=== PATIENT | female | born 1980 | race Caucasian/White ===

== ENCOUNTER 2017-10-01 19:09 | Emergency (ER) | payer SELFPAY ==
[2017-10-01 19:19] VITALS: BP 121/80; PULSE 75; RESP 16; TEMP 98; O2SAT 100
[2017-10-01] MEDS ORDERED: Sodium Chloride 0.9% 1,000 ML IV STA (19:30)
--- NOTE | 2017-10-01 19:32 | ED PDOC ---
HPI: Abdomen Time Seen by Provider: 10/01/17 19:19 Chief Complaint (Nursing): Abdominal Pain History Per: Patient Onset/Duration Of Symptoms: Days (8) Current Symptoms Are (Timing): Still Present Severity: Mild Pain Scale Rating Of: 3 Location Of Pain/Discomfort: Epigastric Quality Of Discomfort: Unable To Describe Associated Symptoms: Nausea, Vomiting. denies: Fever, Diarrhea, Urinary Symptoms Additional Complaint(s): Epigastric pain assoc with nausea and vomiting x 8 days. No fever or diarrhea. Past Medical History Vital Signs: Last Vital Signs Temp 98 F 10/01/17 19:17 Pulse 75 10/01/17 19:17 Resp 16 10/01/17 19:17 BP 121/80 10/01/17 19:17 Pulse Ox 100 10/01/17 19:31 - Medical History PMH: No Chronic Diseases - Surgical History Surgical History: Cholecystectomy - Family History Family History: States: Unknown Family Hx - Home Medications Home Medications: Ambulatory Orders Medication Instructions Recorded Vit No.130/Iron/Folic 1 tab DAILY 07/31/15 [ Tablet] Ibuprofen [Motrin Tab] 600 mg PO Q6 PRN #0 tab 08/01/15 Sennosides A and B [Senokot Tab] 17.2 mg PO HS #0 tab 08/01/15 Famotidine [Pepcid] 20 mg PO Q12 #20 tab 10/01/17 Ondansetron [Zofran] 4 mg PO Q8H #10 tab 10/01/17 - Allergies Allergies/Adverse Reactions: Allergies Allergy/AdvReac Type Severity Reaction Status Date / Time No Known Allergies Allergy Verified 10/01/17 19:17 Review of Systems ROS Statement: Except As Marked, All Systems Reviewed And Found Negative Constitutional: Negative for: Fever Gastrointestinal: Positive for: Nausea, Vomiting, Abdominal Pain. Negative for : Diarrhea Physical Exam - Reviewed Nursing Documentation Reviewed: Yes Vital Signs Reviewed: Yes - Physical Exam Appears: Positive for: Non-toxic, No Acute Distress Head Exam: Positive for: ATRAUMATIC, NORMAL INSPECTION, NORMOCEPHALIC Skin: Positive for: Normal Color, Warm, DRY Eye Exam: Positive for: EOMI, Normal appearance, PERRL ENT: Positive for: Normal ENT Inspection Neck: Positive for: Normal, Painless ROM Cardiovascular/Chest: Positive for: Regular Rate, Rhythm Respiratory: Positive for: CNT, Normal Breath Sounds Gastrointestinal/Abdominal: Positive for: Bowel Sounds, Soft, Tenderness ( Epigastric) Back: Positive for: Normal Inspection Extremity: Positive for: Normal ROM Neurologic/Psych: Positive for: Alert, Oriented - Laboratory Results Result Diagrams: 10/01/17 19:56 10/01/17 19:56 - ECG O2 Sat by Pulse Oximetry: 100 - Progress Re-evaluation Time: 20:32 Condition: Improved Disposition - Clinical Impression Clinical Impression: Gastritis - Patient ED Disposition Is Patient to be Admitted: No Counseled Patient/Family Regarding: Studies Performed, Diagnosis, Need For Followup, Rx Given - Disposition [facility]errals: [facility] [Outside] Disposition: Routine/Home Disposition Time: 20:33 Condition: FAIR Prescriptions: Famotidine [Pepcid] 20 mg PO Q12 #20 tab Ondansetron [Zofran] 4 mg PO Q8H #10 tab Instructions: Gastritis Forms: [facility] (Tajik) Print Language: SAMI
[2017-10-01 20:00] LABS: BASO % 0.7 % (0.0-2.0); EOS # 0.6 K/uL (0.0-0.7); EOS % 12.2 % (0.0-4.0); HEMOGLOBIN 12.2 g/dL (12.0-16.0); LYMPH # 1.6 K/uL (1.0-4.3); LYMPH % 33.3 % (20.0-40.0); MEAN CELL VOLUME 88.9 fl (81.0-99.0); MEAN CORPUSCULAR HEMOGLOBIN 29.3 pg (27.0-31.0); MEAN PLATELET VOLUME 8.5 fl (7.2-11.7); MONO # 0.4 K/uL (0.0-0.8); MONO % 8.2 % (0.0-10.0); NEUT # 2.1 K/uL (1.8-7.0); NEUT % 45.6 % (50.0-75.0); RBC 4.17 Mil/uL (3.80-5.20); WHITE BLOOD COUNT 4.7 K/uL (4.8-10.8)
[2017-10-01 20:09] LABS: ALB/GLOB RATIO 1.2 (1.0-2.1); ALBUMIN 4.1 g/dL (3.5-5.0); ALT/SGPT 31 U/L (9-52); AST/SGOT 34 U/L (14-36); BLOOD UREA NITROGEN 8 mg/dl (7-17); CALCIUM 8.9 mg/dL (8.4-10.2); GFR AFRICAN-AMERICAN > 60; GFR NON-AFRICAN AMERICAN > 60; LIPASE 183 U/L (23-300)
== END 2017-10-01 20:52 | disposition home or self-care (01) ==
LOC: H.ER 19:09
DX: K29.70 Gastritis, unspecified, without bleeding (principal)
CPT/HCPCS: 80053; 81025; 83690; 85025; 96374; 96375; 99284; J2405; J7030

== ENCOUNTER 2018-05-02 14:32 | Emergency (ER) | payer SELFPAY ==
[2018-05-02 14:37] VITALS: RESP 16
[2018-05-02] MEDS ORDERED: Sodium Chloride 0.9% 1,000 ML IV STA (15:12)
--- NOTE | 2018-05-02 16:15 | ED PDOC ---
HPI: Abdomen Time Seen by Provider: 05/02/18 15:02 Chief Complaint (Nursing): Abdominal Pain Chief Complaint (Provider): Abdominal Pain History Per: Patient History/Exam Limitations: no limitations Onset/Duration Of Symptoms: Sudden Onset, Worse Since Current Symptoms Are (Timing): Still Present Location Of Pain/Discomfort: LLQ Quality Of Discomfort: Other (fullness) Associated Symptoms: Chills, Nausea, Diarrhea. denies: Fever, Vomiting Additional Complaint(s): 38 year old female presents to the ED for an evaluation of sudden abdominal pain onset Tuesday while having bowel movement. Patient reports of diarrhea onset for the last 2 days and constipation which resolved. Currently, patient has worsening LLQ pain that is radiating to the rest of the abdomen and a feeling of fullness with associated symptoms of nausea, poor appetite and chills. She was seen at the clinic today and advised to come to the ER for further evaluation. The pelvic exam at the clinic demonstrates CMT. Otherwise, she denies vomiting, fever, vaginal discharge or any urinary symptoms. PMD: Chalino Sanchez Abnormal Vaginal Bleeding: No Past Medical History Reviewed: Historical Data, Nursing Documentation, Vital Signs Vital Signs: Last Vital Signs Temp 97.6 F 05/02/18 14:34 Pulse 71 05/02/18 14:34 Resp 16 05/02/18 14:34 BP 120/72 05/02/18 14:34 Pulse Ox 100 05/02/18 14:34 - Medical History PMH: No Chronic Diseases - Surgical History Surgical History: Cholecystectomy - Family History Family History: States: Unknown Family Hx - Social History Current smoker - smoking cessation education provided: No Alcohol: None Drugs: Denies - Home Medications Home Medications: Ambulatory Orders Medication Instructions Recorded Vit No.130/Iron/Folic 1 tab DAILY 07/31/15 [ Tablet] Ibuprofen [Motrin Tab] 600 mg PO Q6 PRN #0 tab 08/01/15 Sennosides A and B [Senokot Tab] 17.2 mg PO HS #0 tab 08/01/15 Famotidine [Pepcid] 20 mg PO Q12 #20 tab 10/01/17 Ondansetron [Zofran] 4 mg PO Q8H #10 tab 10/01/17 Doxycycline Monohydrate 100 mg PO BID #28 tablet 05/02/18 Ibuprofen [Motrin Tab] 600 mg PO Q8 PRN #60 tab 05/02/18 - Allergies Allergies/Adverse Reactions: Allergies Allergy/AdvReac Type Severity Reaction Status Date / Time No Known Allergies Allergy Verified 10/01/17 19:17 Review of Systems ROS Statement: Except As Marked, All Systems Reviewed And Found Negative (As per HPI, otherwise negative) Constitutional: Positive for: Chills. Negative for: Fever Gastrointestinal: Positive for: Nausea, Abdominal Pain, Diarrhea. Negative for: Vomiting, Constipation Genitourinary Female: Negative for: Dysuria, Frequency, Incontinence, Hematuria, Vaginal Discharge Physical Exam - Reviewed Nursing Documentation Reviewed: Yes Vital Signs Reviewed: Yes - Physical Exam Appears: Positive for: In Acute Distress (mild painful) Head Exam: Positive for: ATRAUMATIC, NORMOCEPHALIC Skin: Positive for: Warm, Dry Eye Exam: Positive for: EOMI, PERRL ENT: Negative for: Pharyngeal Erythema, Tonsillar Exudate Neck: Positive for: Painless ROM, Supple Cardiovascular/Chest: Positive for: Regular Rate, Rhythm. Negative for: Murmur Respiratory: Positive for: Normal Breath Sounds. Negative for: Respiratory Distress Gastrointestinal/Abdominal: Positive for: Soft, Tenderness (suprapubic radiating to LLQ with mild palpation ), Distended (mild ). Negative for: Mass, Guarding, Rebound (negtive for nayak's sign and mcburney's point tenderness ), Other Back: Positive for: Normal Inspection. Negative for: L CVA Tenderness, R CVA Tenderness Extremity: Positive for: Normal ROM. Negative for: Deformity Lymphatic: Negative for: Adenopathy Neurological/Psych: Positive for: Awake, Alert. Negative for: Motor/Sensory Deficits - Laboratory Results Result Diagrams: 05/02/18 15:28 05/02/18 15:28 - ECG O2 Sat by Pulse Oximetry: 100 (RA) Pulse Ox Interpretation: Normal Medical Decision Making Medical Decision Making: Time: 151 Impression: pelvic pain Differential Diagnosis: ovarian cyst, TOA, TID, UTI with cystitis, diverticulitis and colitis Plan: CMP Lactic acid, plasma Lipase stat ED urine dipstick ED urine CBC w/ differential Chlamydia/HC RNA, TMA Normal saline 1000 mls/hr Toradol 15mg Zofran 4mg IV insertion Transvaginal US Reevaluation Time: 171 FINDINGS: UTERUS: Measures 10.5 x 6.6 x 5.4 cm. Normal in size and appearance, anteverted. There is a heterogeneous but predominantly hypoechoic mass at the mid body of the uterus primarily intramural but also encroaching the submucous space compatible with a fibroid measuring 2.5 x 2.0 x 2.4 cm. No additional myometrial pathology appreciable. ENDOMETRIUM: Measures 8.0 mm in diameter. Unremarkable. CERVIX: No cervical abnormality identified. RIGHT OVARY: Measures 3.1 x 1.9 x 1.5 cm. No solid mass. Normal flow. LEFT OVARY: Measures 4.1 x 3.6 x 1.9 cm. No solid mass. Normal flow. A small 1.3 cm cyst is seen within the left ovary. There is an adjacent hypoechoic lesion identified inferolateral to the left ovary measuring 3.8 x 1.8 x 2.0 cm avascular on color Doppler ultrasound with smooth peripheral margins and definitive posterior acoustic enhancement probably reflecting a complex paraovarian cyst though this is not definite. FREE FLUID: No significant free fluid noted. OTHER FINDINGS: None. IMPRESSION: 1. No evidence of ovarian torsion bilaterally. No hydrosalpinx or definite tubo- ovarian abscess. 2. 3.8 cm paraovarian lesion without color Doppler blood flow characteristics suspicious for a likely benign cyst. Abscess is not favored given lack of hyperemia pattern in its periphery and lack of hydrosalpinx. Exact etiology unclear. Time: 1724 Reviewed labs ad US. Findings consistent with ovarian cyst. Given patient's clinical findings at clinic, patient will also be treated with antibiotics for possible PID. Discussed findings and further care with patient. Patient stable for discharge. Scribe Attestation: Documented by Vicenta Marsh, acting as a scribe Rema Valles MD Provider Scribe Attestation: All medical record entries made by the Scribe were at my direction and personally dictated by me. I have reviewed the chart and agree that the record accurately reflects my personal performance of the history, physical exam, medical decision making, and the department course for this patient. I have also personally directed, reviewed, and agree with the discharge instructions and disposition. Disposition - Clinical Impression Clinical Impression: Ovarian cyst, Pelvic inflammatory disease (PID) Counseled Patient/Family Regarding: Studies Performed, Diagnosis, Need For Followup, Rx Given - Disposition Referrals: [facility] [Outside] ([facility] [place] [employer] [facility] [employer] [facility]) Disposition: Routine/Home Disposition Time: 17:30 Condition: STABLE Prescriptions: Doxycycline Monohydrate 100 mg PO BID #28 tablet Ibuprofen [Motrin Tab] 600 mg PO Q8 PRN #60 tab PRN Reason: Pain, Moderate (4-7) Instructions: Ovarian Cyst (DC), Pelvic Inflammatory Disease (DC) Forms: [facility] ED School/Work Excuse Print Language: VENEZUELAN
[2018-05-02 16:24] LABS: BASO % 0.4 % (0.0-2.0); EOS # 0.1 K/uL (0.0-0.7); EOS % 1.2 % (0.0-4.0); LYMPH # 1.8 K/uL (1.0-4.3); LYMPH % 38.5 % (20.0-40.0); MEAN CELL VOLUME 87.2 fl (81.0-99.0); MEAN CORPUSCULAR HEMOGLOBIN 28.9 pg (27.0-31.0); MEAN CORPUSCULAR HGB CONC 33.1 g/dL (33.0-37.0); MEAN PLATELET VOLUME 8.9 fl (7.2-11.7); MONO # 0.4 K/uL (0.0-0.8); MONO % 8.5 % (0.0-10.0); NEUT # 2.4 K/uL (1.8-7.0); NEUT % 51.4 % (50.0-75.0); RBC 4.16 Mil/uL (3.80-5.20); RED CELL DISTRIBUTION WIDTH 14.2 % (11.5-14.5); WHITE BLOOD COUNT 4.6 K/uL (4.8-10.8)
[2018-05-02 16:43] LABS: ALB/GLOB RATIO 1.2 (1.0-2.1); ALBUMIN 4.4 g/dL (3.5-5.0); ALT/SGPT 27 U/L (9-52); AST/SGOT 30 U/L (14-36); BLOOD UREA NITROGEN 10 mg/dl (7-17); CALCIUM 9.3 mg/dL (8.4-10.2); GFR NON-AFRICAN AMERICAN > 60; LIPASE 160 U/L (23-300)
--- NOTE | 2018-05-02 17:14 | US ---
Date of service: 05/02/2018 HISTORY: pelvic pain with CMT r/o PID or TOA COMPARISON: None available. TECHNIQUE: Transvaginal pelvic ultrasound was performed with longitudinal and transverse images submitted for interpretation. FINDINGS: UTERUS: Measures 10.5 x 6.6 x 5.4 cm. Normal in size and appearance, anteverted. There is a heterogeneous but predominantly hypoechoic mass at the mid body of the uterus primarily intramural but also encroaching the submucous space compatible with a fibroid measuring 2.5 x 2.0 x 2.4 cm. No additional myometrial pathology appreciable. ENDOMETRIUM: Measures 8.0 mm in diameter. Unremarkable. CERVIX: No cervical abnormality identified. RIGHT OVARY: Measures 3.1 x 1.9 x 1.5 cm. No solid mass. Normal flow. LEFT OVARY: Measures 4.1 x 3.6 x 1.9 cm. No solid mass. Normal flow. A small 1.3 cm cyst is seen within the left ovary. There is an adjacent hypoechoic lesion identified inferolateral to the left ovary measuring 3.8 x 1.8 x 2.0 cm avascular on color Doppler ultrasound with smooth peripheral margins and definitive posterior acoustic enhancement probably reflecting a complex paraovarian cyst though this is not definite. FREE FLUID: No significant free fluid noted. OTHER FINDINGS: None. IMPRESSION: 1. No evidence of ovarian torsion bilaterally. No hydrosalpinx or definite tubo-ovarian abscess. 2. 3.8 cm paraovarian lesion without color Doppler blood flow characteristics suspicious for a likely benign cyst. Abscess is not favored given lack of hyperemia pattern in its periphery and lack of hydrosalpinx. Exact etiology unclear.
[2018-05-02] MEDS ORDERED: cefTRIAXone (Rocephin) 250 mg Inj IM ONE (17:31)
[2018-05-02] MEDS ORDERED: cefTRIAXone (Rocephin) 250 mg Inj ONE (17:41)
[2018-05-02 18:01] VITALS: BP 103/65; PULSE 68; TEMP 98.2; O2SAT 98
== END 2018-05-02 18:02 | disposition home or self-care (01) ==
LOC: H.ER 14:32
DX: N83.209 Unspecified ovarian cyst, unspecified side (principal); N73.9 Female pelvic inflammatory disease, unspecified
CPT/HCPCS: 76830; 80053; 81025; 83605; 83690; 85025; 87491; 87591; 96372; 96374; 96375; 99284; J0696; J1885; J2405; J7030